=== PATIENT | male | born 1945 | race African-American/Black ===

== ENCOUNTER 2017-09-27 08:59 | Emergency (ER) | payer OTHER, MEDICARE ==
[2017-09-27] MEDS: KETOROLAC 60 MG/2 ML INJ. IM (10:11)
[2017-09-27] MEDS: HYDROcodone/APAP 5/325MG 1 TAB TABLET PO (10:11)
== END 2017-09-27 11:02 | disposition home or self-care (01) ==
LOC: ER 08:59
DX: G89.29 Other chronic pain (principal); M25.551 Pain in right hip; Z88.6 Allergy status to analgesic agent
CPT/HCPCS: 73502; 96372; 99284-25; J1885

== ENCOUNTER 2017-12-14 18:47 | Inpatient (IN) | payer OTHER, MEDICARE ==
[2017-12-14 19:26] LABS: BASO % 0 % (0-3); EOS % 0 % (0-3); HEMATOCRIT 33.7 % (39.0-53.0); LYMPH # 0.8 x10^3/uL (1.0-4.8); LYMPH % 7 % (24-48); MEAN CORPUSCULAR HEMOGLOBIN 29 pg (25-35); MEAN CORPUSCULAR HGB CONC 33 g/dL (31-37); MEAN CORPUSCULAR VOLUME 88 fL (79-100); MONO # 0.8 x10^3/uL (0.0-1.1); MONO % 7 % (0-9); NEUT # 11.1 x10^3uL (1.8-7.7); NEUT % 87 % (31-73); PLATELET COUNT 360 x10^3/uL (140-400); RED BLOOD COUNT 3.84 x10^6/uL (4.30-5.70); RED CELL DISTRIBUTION WIDTH 13.7 % (11.5-14.5); WHITE BLOOD COUNT 12.8 x10^3/uL (4.0-11.0)
[2017-12-14 19:36] LABS: ADD MAN DIFF? YES; ANION GAP 13 (6-14); BLOOD UREA NITROGEN 19 mg/dL (8-26); BUN/CREATININE RATIO 11 (6-20); CALCIUM 10.3 mg/dL (8.5-10.1); CARBON DIOXIDE 28 mmol/L (21-32); CHLORIDE 98 mmol/L (98-107); CREATININE 1.7 mg/dL (0.7-1.3); GFR 48.5; GLUCOSE 123 mg/dL (70-99); INR 1.4 (0.8-1.1); POTASSIUM 3.3 mmol/L (3.5-5.1); PROTHROMBIN TIME PATIENT 16.5 SEC (11.7-14.0); SODIUM 139 mmol/L (136-145)
[2017-12-14] MEDS: ONDANSETRON PF 4 MG/2 ML VIAL. IV ×2 (19:36→20:57)
[2017-12-14] MEDS: IV NORMAL SALINE 1000ML BAG 1,000 ML IV (19:36)
[2017-12-14] MEDS: fentaNYL PF VIAL 100 MCG/2 ML VIAL IV (19:36)
[2017-12-14 19:43] LABS: ALBUMIN 3.7 g/dL (3.4-5.0); ALBUMIN/GLOBULIN RATIO 0.8 (1.0-1.7); ALK PHOS 55 U/L (46-116); ALT (SGPT) 22 U/L (16-63); AST (SGOT) 38 U/L (15-37); TOTAL BILIRUBIN 0.5 mg/dL (0.2-1.0); TOTAL PROTEIN 8.2 g/dL (6.4-8.2)
[2017-12-14 19:49] LABS: LIPASE 5100 U/L (73-393)
[2017-12-14 20:03] LABS: % BANDS 4 % (0-9); % LYMPHS 1 % (24-48); % MONOS 2 % (0-10); % SEGS 93 % (35-66); PLT ESTIMATE ADEQUATE (ADEQUATE)
[2017-12-14] MEDS ORDERED: MORPHINE SULFATE 10 MG/ML VIAL. (20:49)
[2017-12-14] MEDS: MORPHINE SULFATE 10 MG/ML VIAL. IV (20:56)
[2017-12-14 21:03] LABS: TROPONINI < 0.017 ng/mL (0.000-0.055)
[2017-12-14] MEDS ORDERED: CALCIUM CARBONATE 500 MG TAB.CHEW PO (21:45)
[2017-12-14] MEDS ORDERED: MAG HYDROX/ALUMINUM HYD/SIMETH 30 ML ORAL.SUSP PO (21:45)
[2017-12-14] MEDS ORDERED: PROCHLORPERAZINE 25 MG SUPP.RECT. PR (21:45)
[2017-12-14] MEDS ORDERED: LABETALOL 20 MG/4 ML DISP.SYRIN. IVP (22:00)
[2017-12-14] MEDS ORDERED: TEMAZEPAM 7.5 MG CAPSULE PO (22:00)
[2017-12-14] MEDS: POTASSIUM CL 40MEQ IN 0.9%NACL 1,000 ML IV (23:08)
[2017-12-14] MEDS: MORPHINE SULFATE 4 MG/ML DISP.SYRIN. IV (23:31)
[2017-12-15] MEDS: MORPHINE SULFATE 4 MG/ML DISP.SYRIN. IV (02:57)
[2017-12-15] MEDS: ONDANSETRON PF 4 MG/2 ML VIAL. IV ×4 (02:57→22:58)
[2017-12-15] MEDS: PANTOPRAZOLE IV PUSH 40 MG VIAL. IVP (08:34)
[2017-12-15] MEDS: ACETAMINOPHEN 325 MG TABLET. PO ×2 (08:35→22:57)
[2017-12-15] MEDS: POTASSIUM CL 40MEQ IN 0.9%NACL 1,000 ML IV ×2 (10:28→20:37)
[2017-12-15] MEDS: oxyCODONE/APAP 5/325 1 TAB TABLET PO ×3 (12:03→20:34)
[2017-12-16] MEDS: oxyCODONE/APAP 5/325 1 TAB TABLET PO ×3 (05:00→20:02)
[2017-12-16] MEDS: POTASSIUM CL 40MEQ IN 0.9%NACL 1,000 ML IV (05:20)
[2017-12-16] MEDS: ONDANSETRON PF 4 MG/2 ML VIAL. IV ×2 (05:21→15:47)
[2017-12-16 08:36] LABS: ALBUMIN 2.3 g/dL (3.4-5.0); ALBUMIN/GLOBULIN RATIO 0.6 (1.0-1.7); ALK PHOS 48 U/L (46-116); ALT (SGPT) 15 U/L (16-63); ANION GAP 8 (6-14); AST (SGOT) 20 U/L (15-37); BLOOD UREA NITROGEN 12 mg/dL (8-26); BUN/CREATININE RATIO 11 (6-20); CALCIUM 9.1 mg/dL (8.5-10.1); CARBON DIOXIDE 25 mmol/L (21-32); CHLORIDE 107 mmol/L (98-107); CREATININE 1.1 mg/dL (0.7-1.3); GFR 80.1; GLUCOSE 84 mg/dL (70-99); LIPASE 391 U/L (73-393); POTASSIUM 4.1 mmol/L (3.5-5.1); SODIUM 140 mmol/L (136-145); TOTAL BILIRUBIN 0.3 mg/dL (0.2-1.0)
[2017-12-16] MEDS: PANTOPRAZOLE IV PUSH 40 MG VIAL. IVP (10:04)
[2017-12-16] MEDS: MORPHINE SULFATE 4 MG/ML DISP.SYRIN. IV (10:05)
[2017-12-16 11:19] LABS: ADD MAN DIFF? NO
[2017-12-16 11:31] LABS: % SAT IRON 2 % (15-34); IRON,SERUM 6 ug/dL (65-175)
[2017-12-16 11:39] LABS: BASO # 0.1 x10^3/uL (0.0-0.2); BASO % 1 % (0-3); EOS # 0.2 x10^3/uL (0.0-0.7); EOS % 2 % (0-3); HEMATOCRIT 24.4 % (39.0-53.0); HEMOGLOBIN 7.8 g/dL (13.0-17.5); LYMPH # 0.9 x10^3/uL (1.0-4.8); LYMPH % 8 % (24-48); MEAN CORPUSCULAR HEMOGLOBIN 29 pg (25-35); MEAN CORPUSCULAR HGB CONC 32 g/dL (31-37); MEAN CORPUSCULAR VOLUME 90 fL (79-100); MONO # 1.1 x10^3/uL (0.0-1.1); MONO % 10 % (0-9); NEUT # 8.8 x10^3uL (1.8-7.7); NEUT % 80 % (31-73); PLATELET COUNT 237 x10^3/uL (140-400); RED BLOOD COUNT 2.72 x10^6/uL (4.30-5.70); RED CELL DISTRIBUTION WIDTH 13.6 % (11.5-14.5); WHITE BLOOD COUNT 11.1 x10^3/uL (4.0-11.0)
[2017-12-16 11:51] LABS: VITAMIN-B12 424 pg/mL (247-911)
[2017-12-16] MEDS: FERROUS SULFATE ORAL 300 MG/5 ML SOLUTION. PO (17:57)
[2017-12-16] MEDS: PROCHLORPERAZINE 10 MG/2 ML VIAL. IV (20:37)
[2017-12-17] MEDS: oxyCODONE/APAP 5/325 1 TAB TABLET PO ×4 (03:02→23:53)
[2017-12-17] MEDS: ONDANSETRON PF 4 MG/2 ML VIAL. IV (03:02)
[2017-12-17] MEDS ORDERED: LIDOCAINE 1% PF 2 ML VIAL. ID ×2 (06:30→07:00)
[2017-12-17] MEDS ORDERED: MIDAZOLAM HCL/PF 2 MG/2 ML VIAL. IV (06:30)
[2017-12-17] MEDS ORDERED: fentaNYL PF VIAL 100 MCG/2 ML VIAL IV ×4 (06:30→07:00)
[2017-12-17 06:33] LABS: HEMATOCRIT 23.7 % (39.0-53.0); HEMOGLOBIN 7.8 g/dL (13.0-17.5); MEAN CORPUSCULAR HEMOGLOBIN 29 pg (25-35); MEAN CORPUSCULAR HGB CONC 33 g/dL (31-37); MEAN CORPUSCULAR VOLUME 89 fL (79-100); PLATELET COUNT 250 x10^3/uL (140-400); RED BLOOD COUNT 2.68 x10^6/uL (4.30-5.70); RED CELL DISTRIBUTION WIDTH 13.4 % (11.5-14.5); WHITE BLOOD COUNT 9.5 x10^3/uL (4.0-11.0)
[2017-12-17] MEDS: IV RINGERS,LACTATED 1000ML 1,000 ML IV ×2 (06:51→07:00)
[2017-12-17 06:52] LABS: ALBUMIN 2.1 g/dL (3.4-5.0); ALBUMIN/GLOBULIN RATIO 0.5 (1.0-1.7); ALK PHOS 60 U/L (46-116); ALT (SGPT) 16 U/L (16-63); ANION GAP 5 (6-14); AST (SGOT) 22 U/L (15-37); BLOOD UREA NITROGEN 7 mg/dL (8-26); BUN/CREATININE RATIO 7 (6-20); CALCIUM 9.2 mg/dL (8.5-10.1); CARBON DIOXIDE 27 mmol/L (21-32); CHLORIDE 106 mmol/L (98-107); GFR 89.4; GLUCOSE 114 mg/dL (70-99); POTASSIUM 3.9 mmol/L (3.5-5.1); SODIUM 138 mmol/L (136-145); TOTAL BILIRUBIN 0.2 mg/dL (0.2-1.0)
[2017-12-17] MEDS ORDERED: ONDANSETRON PF 4 MG/2 ML VIAL. IV (07:00)
[2017-12-17] MEDS ORDERED: PROCHLORPERAZINE 10 MG/2 ML VIAL. IV (07:00)
[2017-12-17] MEDS ORDERED: MORPHINE SULFATE 2 MG/ML DISP.SYRIN. IV (07:00)
[2017-12-17] MEDS ORDERED: PROPOFOL 20 ML IV (07:13)
[2017-12-17] MEDS ORDERED: LIDOCAINE 2% PF Vial for OR 5 ML VIAL. (07:13)
[2017-12-17] MEDS: FERROUS SULFATE ORAL 300 MG/5 ML SOLUTION. PO ×2 (09:11→17:13)
[2017-12-17] MEDS: PANTOPRAZOLE 40 MG TABLET.DR. PO ×2 (09:11→17:12)
[2017-12-17] MEDS: fentaNYL PF VIAL 100 MCG/2 ML VIAL IV (09:12)
[2017-12-17] MEDS: IRON SUCROSE COMPLEX 200 MG in IV NORMAL SALINE 100ML 100 ML IV (09:13)
[2017-12-17] MEDS: VITAMIN B12,B9,B6 COMPLEX 1 TABLET. PO (13:24)
[2017-12-17] MEDS: POTASSIUM CL 20MEQ D5-0.45NACL 1,000 ML IV (13:26)
[2017-12-18] MEDS: oxyCODONE/APAP 5/325 1 TAB TABLET PO ×4 (03:57→16:02)
[2017-12-18] MEDS: ONDANSETRON ODT 4 MG TAB.RAPDIS. PO (07:35)
[2017-12-18] MEDS: PANTOPRAZOLE 40 MG TABLET.DR. PO ×2 (07:36→16:01)
[2017-12-18] MEDS: FERROUS SULFATE ORAL 300 MG/5 ML SOLUTION. PO (08:00)
[2017-12-18] MEDS: VITAMIN B12,B9,B6 COMPLEX 1 TABLET. PO (09:01)
[2017-12-18] MEDS ORDERED: POLYETHYLENE GLYCOL 3350 17 GM PACKET. PO (10:00)
[2017-12-18] MEDS: MAGNESIUM HYDROXIDE 2,400 MG/30 ML ORAL.SUSP. PO (12:02)
== END 2017-12-18 16:08 | disposition home or self-care (01) | DRG 438 ==
LOC: ER 18:47 → 5 SOUTH 21:50
PROC: 0DB58ZX Excision of Esophagus, Via Natural or Artificial Opening Endoscopic, Diagnostic (ICD-10-PCS; principal; 2017-12-17 07:30)
PROC: 0DB68ZX Excision of Stomach, Via Natural or Artificial Opening Endoscopic, Diagnostic (ICD-10-PCS; 2017-12-17 07:30)
DX: K85.20 Alcohol induced acute pancreatitis without necrosis or infection (principal); N17.0 Acute kidney failure with tubular necrosis; R65.10 Systemic inflammatory response syndrome (SIRS) of non-infectious origin without acute organ dysfunction; J90 Pleural effusion, not elsewhere classified; K29.60 Other gastritis without bleeding; K25.9 Gastric ulcer, unspecified as acute or chronic, without hemorrhage or perforation; K21.0 Gastro-esophageal reflux disease with esophagitis; I10 Essential (primary) hypertension; M19.90 Unspecified osteoarthritis, unspecified site; F43.10 Post-traumatic stress disorder, unspecified; E87.6 Hypokalemia; N28.1 Cyst of kidney, acquired; N20.0 Calculus of kidney; K44.9 Diaphragmatic hernia without obstruction or gangrene; D50.9 Iron deficiency anemia, unspecified; E78.5 Hyperlipidemia, unspecified; F31.9 Bipolar disorder, unspecified; Z95.0 Presence of cardiac pacemaker; Z82.49 Family history of ischemic heart disease and other diseases of the circulatory system; Z79.899 Other long term (current) drug therapy; Z72.89 Other problems related to lifestyle
CPT/HCPCS: 36415; 74176; 76705; 80053; 82607; 83540; 83550; 83690; 84484; 85007; 85025; 85027; 85610; 88305; 88342; 93005; 96361; 96374; 96375; 96376; 97110-GP; 97161-GP; 97165-GO; 99285; 99285-25; C9113; J0780; J1756; J2001; J2270; J2405; J2704; J3010; J3480; J7030; J7120; Q0162

== ENCOUNTER → 2019-05-18 | Outpatient (CLI) | payer OTHER ==
[2017-12-18 15:00] VITALS: BP 152/69
[~2019-05-18] MED LIST: AMLO10TA8 PO; ASPI-621 PO; CARV25TA2 PO; CYAN1TAB19 PO; DICL100G18 TP; FERR325T14 PO; HYDR50TA6 PO; MOME17SP NS; NAPR-695 PO; OMEP20TA8 PO; OXYC1TAB7 PO; POLY17PO28 PO; POTA20TA4 PO; Pantoprazole PO; SERT50TA PO; TRAM50TA PO; VENTOLIN HFA18 GM INH; VITA1TAB19 PO
[2019-05-18 09:24] LABS: BASO # 0.1 x10^3/uL (0.0-0.2); BASO % 2 % (0-3); EOS # 0.2 x10^3/uL (0.0-0.7); EOS % 6 % (0-3); HEMATOCRIT 41.6 % (39.0-53.0); HEMOGLOBIN 13.7 g/dL (13.0-17.5); LYMPH # 1.7 x10^3/uL (1.0-4.8); LYMPH % 40 % (24-48); MEAN CORPUSCULAR HEMOGLOBIN 29 pg (25-35); MEAN CORPUSCULAR HGB CONC 33 g/dL (31-37); MEAN CORPUSCULAR VOLUME 89 fL (79-100); MONO # 0.3 x10^3/uL (0.0-1.1); MONO % 7 % (0-9); NEUT # 1.9 x10^3/uL (1.8-7.7); NEUT % 45 % (31-73); PLATELET COUNT 255 x10^3/uL (140-400); RED BLOOD COUNT 4.67 x10^6/uL (4.30-5.70); RED CELL DISTRIBUTION WIDTH 13.8 % (11.5-14.5); WHITE BLOOD COUNT 4.2 x10^3/uL (4.0-11.0)
[2019-05-18 09:29] LABS: PROTHROMBIN TIME PATIENT 13.9 SEC (11.7-14.0)
[2019-05-18 09:42] LABS: ALBUMIN 3.6 g/dL (3.4-5.0); CALCIUM 10.4 mg/dL (8.5-10.1); CREATININE 1.1 mg/dL (0.7-1.3); GFR 79.8; POTASSIUM 3.6 mmol/L (3.5-5.1)
[2019-05-18 12:02] LABS: BILIRUBIN,URINE NEGATIVE (NEG); CLARITY,URINE CLOUDY; COLOR,URINE YELLOW; NITRITE,URINE NEGATIVE (NEG); PROTEIN,URINE NEGATIVE (NEG-TRACE); UROBILINOGEN,URINE 0.2 mg/dL (0.2 mg/dL)
[2019-05-18 12:07] LABS: BACTERIA,URINE FEW /HPF (0-FEW); HYALINE CASTS, URINE MANY /HPF; RBC,URINE 0 /HPF (0-2); SQUAMOUS EPITHELIAL CELL,UR FEW /LPF; WBC,URINE RARE /HPF (0-4)
--- NOTE | 2019-05-18 13:40 | EKG ---
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
--- NOTE | 2019-05-18 14:10 | RAD ---
EXAM: Chest, 2 views. HISTORY: Hypertension. COMPARISON: None. FINDINGS: 2 views of the chest are obtained. There is no infiltrate, pleural effusion or pneumothorax. The heart is normal in size. There is a cardiac pacemaker with leads in expected position. IMPRESSION: No acute pulmonary finding. Electronically signed by: Priscilla Woodruff MD (05/18/2019 2:07 PM) [facility]
[2019-05-19 00:07] LABS: HEMOGLOBIN A1C 5.7 % (4.8-5.6)
== END | disposition home or self-care (01) ==
LOC: SURGPAT 13:12
PROVIDERS: ATTEND Orthopaedic Surgery
DX: Z01.818 Encounter for other preprocedural examination (principal); M16.12 Unilateral primary osteoarthritis, left hip; Z95.0 Presence of cardiac pacemaker
CPT/HCPCS: 36415; 71046; 80048; 81001; 82040; 82306; 83036; 85025; 85610; 85651; 85730; 87641; 93005

== ENCOUNTER 2019-06-02 12:02 | Inpatient (IN) | payer OTHER ==
[~2019-06-02] VITALS: Ht 177.8 cm; Wt 87.5 kg
[~2019-06-02 12:02] MED LIST changes: +TRANEXAMIC ACID 1,000 MG in IV NORMAL SALINE 50ML 50 ML INJ ONE
[2019-06-02] MEDS ORDERED: MELOXICAM 7.5 MG TABLET PO ONE (12:45)
[2019-06-02] MEDS ORDERED: GABAPENTIN 300 MG CAPSULE. PO ONE (12:45)
[2019-06-02] MEDS ORDERED: ACETAMINOPHEN 500 MG TABLET PO ONE ×2 (12:53→13:00)
[2019-06-02] MEDS: IV RINGERS,LACTATED 1000ML 1,000 ML IV SCH ×2 (13:04→23:51)
[2019-06-02 13:08] LABS: PROTHROMBIN TIME PATIENT 16.3 SEC (11.7-14.0)
[2019-06-02] MEDS ORDERED: ONDANSETRON PF 4 MG/2 ML VIAL. ONE (14:12)
[2019-06-02] MEDS ORDERED: DEXAMETHASONE SOD PHOS 4 MG/ML VIAL ONE (14:12)
[2019-06-02] MEDS ORDERED: LIDOCAINE 2% PF 5 ML VIAL. ONE (14:12)
[2019-06-02] MEDS ORDERED: fentaNYL PF VIAL 100 MCG/2 ML VIAL ONE (14:12)
[2019-06-02] MEDS ORDERED: ROCURONIUM 50 MG/5 ML VIAL. ONE (14:12)
[2019-06-02] MEDS ORDERED: PROPOFOL 20 ML IV ONE (14:12)
[2019-06-02] MEDS ORDERED: PROCHLORPERAZINE 10 MG/2 ML VIAL. IV PRN (15:00)
[2019-06-02] MEDS ORDERED: ONDANSETRON PF 4 MG/2 ML VIAL. IV PRN (15:00)
[2019-06-02] MEDS ORDERED: fentaNYL PF VIAL 100 MCG/2 ML VIAL IV PRN ×2 (15:00→17:45)
[2019-06-02] MEDS ORDERED: IV RINGERS,LACTATED 1000ML 1,000 ML IV SCH (15:00)
[2019-06-02] MEDS ORDERED: MORPHINE SULFATE 2 MG/ML VIAL. IV PRN ×2 (15:00→17:45)
[2019-06-02] MEDS ORDERED: LIDOCAINE 1% PF 2 ML VIAL. ID PRN (15:00)
[2019-06-02] MEDS ORDERED: DESFLURANE 61 TO 120 MINUTES IH ONE (15:48)
[2019-06-02] MEDS ORDERED: VASOPRESSIN 20 UNIT/ML VIAL. ONE (16:45)
[2019-06-02] MEDS ORDERED: NEOSTIGMINE METHYLSULFATE 5 MG/5 ML SYRINGE. ONE (17:12)
[2019-06-02] MEDS ORDERED: GLYCOPYRROLATE 1 MG/5 ML VIAL. ONE (17:12)
[2019-06-02] MEDS: fentaNYL PF VIAL 100 MCG/2 ML VIAL IV PRN ×2 (17:43→17:48)
--- NOTE | 2019-06-02 17:44 | PDOC4 ---
Operative Note Operative Note Date of surgery: 06/02/2019 Preoperative diagnosis: Degenerative joint disease left hip Postoperative diagnosis: Same Operative procedure: Leftt total hip arthroplasty Surgeon: Gena Assist: Julio C Hong nurse practitioner Anesthesia: Gen. Estimated blood loss: 100 mL Complications: None Specimens: Femoral head to pathology Operative indications: Please see my preoperative clinic note and dictated history and physical for detailed operative indications and note that preoperatively we did cover the possibility of infection nerve or blood vessel damage leg length inequality instability premature wear or loosening medical or other anesthetic complications among others he wishes to proceed with surgical evaluation and treatment with joint center admission to follow. Operative text: Patient was identified procedure verified patient placed in the supine position on the operating table. After adequate amounts of general anesthesia were administered he was placed decubitus left side up using the Stulberg hip positioner and the left hip was prepped and draped in standard sterile fashion. After timeout was performed patient procedure identified and verified a curvilinear incision was made centered over the greater trochanter iliotibial band and gluteal fascia were divided in line with their fibers Charnley retractor was placed external rotators were divided from their insertion hip capsule was split in a T fashion hip was dislocated femoral neck c ut was made with the reference cutting guide and the femoral head was noted to be degenerative measured at a size 47 mm and sent for pathological evaluation. The acetabulum was exposed contents of the fovea and labrum were excised and reaming carried up to a size 57 with excellent bleeding bone obtained throughout and the cup sufficiently medialized to the medial wall and a size 58 [employer] coated cluster hole hemispherical cup was impacted in place in proper version a single superiorly directed screw 35 mm in length provided excellent fixation and a 40 mm standard liner was impacted engaging the locking mechanism. The femur was then prepared with a box osteotome and reamed and broached up to a size 14. Trial fitting revealed some instability with a standard offset component and leg lengths were equalized with a high offset component and a +8 40 mm head which provided excellent stability equalized leg lengths and reproduced offset. Trial components removed thorough irrigation carried out normal saline solution using pulse lavage and a size 14 high offset synergy porous coated femoral component was impacted into place and a +8 40 mm Oxinium femoral head was impacted into place and was reduced with equivalent stability showing stability to about 55 internal rotation at 90 hip flexion. Hip capsule was repaired with #5 Ethibond external rotators were reattached transosseously with #5 Ethibond. Hemovac drain and pain catheter were placed pain catheter mixture was injected throughout the joint capsule and fascia was then closed with interrupted #5 Ethibond suture and reinforced with a #1 PDS strata fix barbed suture. Subcutaneous closure with buried Vicryl suture skin closure with 3-0 strata fix Monocryl. A jey dressing with Acticoat was placed and patient wa s returned to recovery room in stable condition having tolerated procedure well. Julio C Hong nurse practitioner was present for the procedure and assisted in the patient positioning prepping draping retraction and skin closure GO AYOUB MD Jun 02, 2019 17:44
[2019-06-02] MEDS ORDERED: CALCIUM CARBONATE 500 MG TAB.CHEW PO PRN (17:45)
[2019-06-02] MEDS ORDERED: DEXTROSE 50% 25 GM / 50ML DISP.SYRIN. IV PRN (17:45)
[2019-06-02] MEDS ORDERED: PROCHLORPERAZINE 5 MG TABLET. PO PRN (17:45)
[2019-06-02] MEDS ORDERED: IV DEXTROSE 5% 250 ML BAG. IV PRN (17:45)
[2019-06-02] MEDS ORDERED: 0.9 % SODIUM CHLORIDE 10 ML DISP.SYRIN. IV PRN (17:45)
[2019-06-02] MEDS ORDERED: IV NORMAL SALINE 1000ML BAG 1,000 ML IV SCH (17:45)
[2019-06-02] MEDS ORDERED: diphenhydrAMINE 50 MG/ML VIAL IV PRN (17:45)
[2019-06-02] MEDS ORDERED: ZOLPIDEM 5 MG TABLET. PO PRN (17:45)
[2019-06-02] MEDS: HYDROmorphone 2 MG/ML VIAL IV PRN ×4 (17:58→18:22)
[2019-06-02] MEDS ORDERED: IPRATRPIUM/ALBUTEROL 0.5/2.5MG 3 ML NEBU. NEB ONE (18:00)
[2019-06-02 19:05] VITALS: BP 140/79
[2019-06-02 19:35] VITALS: BP 135/79
[2019-06-02 20:05] VITALS: BP 131/66
[2019-06-02] MEDS: ONDANSETRON ODT 4 MG TAB.RAPDIS. PO SCH ×2 (20:12→23:51)
[2019-06-02] MEDS: ONDANSETRON PF 4 MG/2 ML VIAL. IV SCH ×2 (20:12→23:51)
[2019-06-02 20:35] VITALS: BP 138/79
[2019-06-02] MEDS ORDERED: NON FORMULARY ITEM (Albuterol Sulfate (Ventolin Hfa Inhaler) 2 PUFF) INH SCH (21:00)
--- NOTE | 2019-06-02 21:25 | HP ---
ADMIT DATE: 06/02/2019 CHIEF COMPLAINT: Degenerative left hip and pain. HISTORY OF PRESENT ILLNESS: The patient is a 73-year-old male, very active with exercise in ongoing martial arts program, but increasingly very limited by his left hip stiffness and groin pain, very sharp on startup of activities. He has to stop and reorient the leg, so he can take the next few steps and has to watch it that he does not aggravate that hip and groin area with any attempted even very limited range of motion way less than he would normally do with his martial arts. He has used a cane in his left hand, so far, but really is tolerating this less and less well with ongoing activities and has really had poor results from previous injection in his joint. PAST MEDICAL HISTORY: Hypertension. PAST SURGICAL HISTORY: Pacemaker placement and Achilles tendon repair in the . FAMILY HISTORY: Mom had heart disease. SOCIAL HISTORY: Denies smoking. Occasional social alcohol use, denies drug use. MEDICATIONS: Include tramadol and a blood pressure medication. ALLERGIES: INCLUDE LISINOPRIL AND IBUPROFEN. REVIEW OF SYSTEMS: Denies any recent illness, no fever, chills, chest pain, or shortness of breath. Significant for the ongoing left hip and groin area pain with activity. PHYSICAL EXAMINATION: VITAL SIGNS: Per admission sheet. HEENT: Atraumatic, normocephalic. HEART: Regular rate and rhythm. LUNGS: Clear to auscultation bilaterally. ABDOMEN: Benign. EXTREMITIES: Examination of lower extremities reveals decreased range of motion with severe tenderness over his already limited range of motion on the left hip compared to the right. No trochanteric bursal tenderness. No instability. Negative straight leg raise sign. Normal examination of the contralateral right hip, bilateral knees and ankles with intact distal pulses, sensation, reflexes, skin in both lower extremities throughout. IMAGING: X-rays show [id number] degenerative change in the left hip. ASSESSMENT: Left hip pain and primary osteoarthritis, left hip. TREATMENT PLAN: I had previously gone over with him in clinic, his failure of ongoing nonoperative treatment options and the rationale for total hip arthroplasty, the possibility of nerve or blood vessel damage, instability, leg length inequality, infection, premature wear or loosening, medical or other anesthetic complications among others. I reviewed all this and answered his questions this morning preoperatively as well and he wishes to proceed with surgical evaluation and treatment, which will include Joint Center admission to follow. GO AYOUB MD DR: AMEE/logan JOB#: [id number] / [id number]
[2019-06-02 21:35] VITALS: BP 132/82
[2019-06-02 22:35] VITALS: BP 154/81
[2019-06-02] MEDS: oxyCODONE IR 5 MG TABLET PO PRN (22:44)
[2019-06-03 02:33] VITALS: BP 144/80
[2019-06-03] MEDS: oxyCODONE IR 5 MG TABLET PO PRN ×5 (04:31→21:38)
[2019-06-03 05:15] LABS: HEMATOCRIT 42.2 % (39.0-53.0); HEMOGLOBIN 13.8 g/dL (13.0-17.5)
[2019-06-03 05:23] LABS: PROTHROMBIN TIME PATIENT 21.4 SEC (11.7-14.0)
[2019-06-03] MEDS ORDERED: MAGNESIUM HYDROXIDE 2,400 MG/30 ML ORAL.SUSP. PO PRN (06:00)
[2019-06-03] MEDS: PANTOPRAZOLE 40 MG TABLET.DR. PO SCH (06:05)
[2019-06-03] MEDS: traMADol 50 MG TABLET PO SCH ×3 (06:05→18:14)
[2019-06-03] MEDS: ONDANSETRON ODT 4 MG TAB.RAPDIS. PO SCH ×2 (06:05→12:00)
[2019-06-03] MEDS: ONDANSETRON PF 4 MG/2 ML VIAL. IV SCH ×2 (06:05→12:00)
[2019-06-03] MEDS: GABAPENTIN 100 MG CAPSULE. PO SCH ×2 (06:06→18:00)
[2019-06-03 06:10] VITALS: BP 141/77
[2019-06-03] MEDS: ALBUTEROL SULFATE 2.5 MG/3 ML NEBU. NEB SCH ×4 (07:16→20:48)
[2019-06-03] MEDS: POTASSIUM CHLORIDE 20 MEQ TABLET.ER. PO SCH (08:12)
[2019-06-03] MEDS: MULTIVITAMIN with MINERAL TABLET. PO SCH (08:12)
[2019-06-03] MEDS: FERROUS SULFATE 325 MG TABLET. PO SCH ×2 (08:13→17:04)
[2019-06-03] MEDS: SERTRALINE 50 MG TABLET. PO SCH (08:13)
[2019-06-03] MEDS: ACETAMINOPHEN 500 MG TABLET PO SCH ×3 (08:13→21:39)
[2019-06-03] MEDS: hydroCHLOROthiazide 25 MG TABLET PO SCH (08:14)
[2019-06-03] MEDS: SENNOSIDES/DOCUSATE 8.6/50MG TABLET. PO SCH (08:14)
[2019-06-03] MEDS: CARVEDILOL 12.5 MG TABLET. PO SCH ×2 (08:17→17:11)
[2019-06-03] MEDS: FLUTICASONE 50MCG/NASAL SPRAY 16GM BOTTLE. NS SCH (08:21)
--- NOTE | 2019-06-03 08:51 | RAD ---
HIP LEFT 2V WITH PELVIS History: Postop left total hip arthroplasty. There has been a left total hip arthroplasty. Alignment appears grossly anatomic. No evidence of acute fracture. Soft tissue and intra-articular air is noted. Surgical drain identified. Mild degenerative changes at the right hip. IMPRESSION: Total left hip arthroplasty. Electronically signed by: Elie Lerma MD (06/03/2019 8:48 AM) [facility]
[2019-06-03] MEDS ORDERED: FERROUS SULFATE 325 MG TABLET. PO SCH (09:00)
[2019-06-03] MEDS ORDERED: chlordiazePOXIDE HCL 25 MG CAPSULE PO PRN (10:00)
[2019-06-03] MEDS ORDERED: LORazepam 1 MG TABLET PO SCH (10:00)
[2019-06-03] MEDS: THIAMINE 100 MG TABLET. PO SCH (11:34)
[2019-06-03] MEDS: FOLIC ACID 1 MG TABLET. PO SCH (11:34)
[2019-06-03] MEDS ORDERED: ONDANSETRON ODT 4 MG TAB.RAPDIS. PO PRN (12:00)
[2019-06-03] MEDS ORDERED: ONDANSETRON PF 4 MG/2 ML VIAL. IV PRN (12:00)
[2019-06-03] MEDS ORDERED: WARFARIN 7.5 MG TABLET. PO ONE (13:00)
--- NOTE | 2019-06-03 13:24 | PDOC ---
PROGRESS NOTES Subjective Subjective Pain controlled. No complaints. Objective Vital Signs Vital Signs Date Time Temp Pulse Resp B/P (MAP) Pulse Ox O2 Delivery O2 Flow Rate FiO2 06/03/19 13:00 Room Air 06/03/19 08:17 99 128/68 06/03/19 07:22 99 06/03/19 07:05 18 06/03/19 06:10 98.7 98.7 06/02/19 22:44 97.0 Physical Exam Dressing intact and dry. Hemovac in place. No apparent pain cathter. Thigh and calf soft. Good active range of motion of foot including dorsiflexion and plantar flexion. Cap refill at toes intact. No signs of compartment syndrome, DVT or neurovascular injury. Labs Laboratory Tests Test 06/02/19 12:40 06/03/19 04:21 Prothrombin Time 16.3 SEC (11.7-14.0) 21.4 SEC (11.7-14.0) Prothromb Time International Ratio 1.3 (0.8-1.1) 1.9 (0.8-1.1) Activated Partial Thromboplast Time 32 SEC (24-38) Hemoglobin 13.8 g/dL (13.0-17.5) Hematocrit 42.2 % (39.0-53.0) Mean Corpuscular Hemoglobin Concent 33 g/dL (31-37) Laboratory Tests Test 06/03/19 04:21 Hemoglobin 13.8 g/dL (13.0-17.5) Hematocrit 42.2 % (39.0-53.0) Mean Corpuscular Hemoglobin Concent 33 g/dL (31-37) Prothrombin Time 21.4 SEC (11.7-14.0) Prothromb Time International Ratio 1.9 (0.8-1.1) Assessment Assessment POD 1 MATT Plan Plan of Care Continue POC NITIN ELY MD Jun 03, 2019 13:24
[2019-06-03] MEDS ORDERED: BISACODYL 10 MG SUPP.RECT. PR PRN (16:00)
[2019-06-03] MEDS ORDERED: WARFARIN 3 MG TABLET. PO ONE (16:00)
--- NOTE | 2019-06-03 17:00 | NUR ---
Hemovac & IAC discontinued per order, tolerated procedure well, Tamika dressing changed previous dressing saturated with bloody drainage, incisional line intact, minimal edema noted, spouse at bedside, call light within reach, in bed visiting with spouse
[2019-06-03 17:12] VITALS: BP 132/75
[2019-06-03 18:33] VITALS: BP 110/68
--- NOTE | 2019-06-03 19:02 | NUR ---
started on ciwa for history of drinking 3 pints of rum. denies need for drink. no tremors noted.
[2019-06-04] MEDS: traMADol 50 MG TABLET PO SCH ×4 (00:10→17:30)
[2019-06-04] MEDS: ACETAMINOPHEN 500 MG TABLET PO SCH ×4 (03:00→21:07)
[2019-06-04 05:15] LABS: HEMATOCRIT 36.2 % (39.0-53.0); HEMOGLOBIN 11.9 g/dL (13.0-17.5)
[2019-06-04 05:22] LABS: PROTHROMBIN TIME PATIENT 26.6 SEC (11.7-14.0)
[2019-06-04] MEDS: GABAPENTIN 100 MG CAPSULE. PO SCH (06:00)
[2019-06-04 06:03] VITALS: BP 118/56
[2019-06-04] MEDS: PANTOPRAZOLE 40 MG TABLET.DR. PO SCH (06:03)
--- NOTE | 2019-06-04 06:40 | PDOC ---
PROGRESS NOTES Subjective Subjective Problems overnight:Hip is sore, getting around well, oxycodone works much better than tramadol Objective Vital Signs Vital Signs Date Time Temp Pulse Resp B/P (MAP) Pulse Ox O2 Delivery O2 Flow Rate FiO2 06/04/19 06:03 99.0 71 18 118/56 (76) 96 Room Air 99.0 06/02/19 22:44 97.0 Physical Exam leg lengths equal, distal neurovascular intact Labs Laboratory Tests Test 06/02/19 12:40 06/03/19 04:21 06/04/19 04:50 Prothrombin Time 16.3 SEC (11.7-14.0) 21.4 SEC (11.7-14.0) 26.6 SEC (11.7-14.0) Prothromb Time International Ratio 1.3 (0.8-1.1) 1.9 (0.8-1.1) 2.5 (0.8-1.1) Activated Partial Thromboplast Time 32 SEC (24-38) Hemoglobin 13.8 g/dL (13.0-17.5) 11.9 g/dL (13.0-17.5) Hematocrit 42.2 % (39.0-53.0) 36.2 % (39.0-53.0) Mean Corpuscular Hemoglobin Concent 33 g/dL (31-37) 33 g/dL (31-37) Laboratory Tests Test 06/04/19 04:50 Hemoglobin 11.9 g/dL (13.0-17.5) Hematocrit 36.2 % (39.0-53.0) Mean Corpuscular Hemoglobin Concent 33 g/dL (31-37) Prothrombin Time 26.6 SEC (11.7-14.0) Prothromb Time International Ratio 2.5 (0.8-1.1) Assessment Assessment POD# 2 total hip Plan Plan of Care WBAT, hip precautions, coumadin GO AYOUB MD Jun 04, 2019 06:40
[2019-06-04] MEDS: ALBUTEROL SULFATE 2.5 MG/3 ML NEBU. NEB SCH ×4 (07:23→20:01)
[2019-06-04] MEDS: SERTRALINE 50 MG TABLET. PO SCH (08:03)
[2019-06-04] MEDS: hydroCHLOROthiazide 25 MG TABLET PO SCH (08:03)
[2019-06-04] MEDS: THIAMINE 100 MG TABLET. PO SCH (08:03)
[2019-06-04] MEDS: SENNOSIDES/DOCUSATE 8.6/50MG TABLET. PO SCH (08:03)
[2019-06-04] MEDS: FOLIC ACID 1 MG TABLET. PO SCH (08:03)
[2019-06-04] MEDS: CARVEDILOL 12.5 MG TABLET. PO SCH ×2 (08:04→16:20)
[2019-06-04] MEDS: FERROUS SULFATE 325 MG TABLET. PO SCH ×2 (08:04→16:20)
[2019-06-04] MEDS: oxyCODONE IR 5 MG TABLET PO PRN ×3 (08:04→21:07)
[2019-06-04] MEDS: POTASSIUM CHLORIDE 20 MEQ TABLET.ER. PO SCH (08:04)
[2019-06-04] MEDS: MULTIVITAMIN with MINERAL TABLET. PO SCH (08:04)
[2019-06-04 08:08] VITALS: BP 134/86
[2019-06-04] MEDS: FLUTICASONE 50MCG/NASAL SPRAY 16GM BOTTLE. NS SCH (12:00)
--- NOTE | 2019-06-04 13:31 | NUR ---
Pharmacy Warfarin Dosing Note S:Pharmacy consulted to assist with anticoagulation therapy started 06/03/19 with target INR: 1.6 - 2.5 O:YAQUELIN MARTINEZ is a 73 year old M with MATT LABS: Last INR: 2.5 Last HGB: 11.9 Last HCT: 36.2 Last PLT: 255 Last dose of 3 mg given on 06/03/19 at Previous Regimen: Vitamin K given: Drug Interaction Changes: Ongoing Drug Interactions: A:INR of 2.5 is within desired range. Target range for this patient is: 1.6 - 2.5 P: Warfarin dose: Hold Today at 1600 Bridge Therapy: Next INR due TOMORROW. Pharmacy anticoagulation service will continue to follow. MAE LAW [facility], 06/04/19 [id number]
--- NOTE | 2019-06-04 14:41 | NUR ---
Transferred to self into bed, advised to call for assistance to prevent falls or injury to hip, spouse at the bedside at this time also informed her staff help only until made independent by therapy. call light in reach, ice to hip
[2019-06-04 16:18] VITALS: BP 128/67
[2019-06-04 18:35] VITALS: BP 130/67
[2019-06-05] MEDS: traMADol 50 MG TABLET PO SCH ×3 (00:33→13:08)
[2019-06-05] MEDS: ACETAMINOPHEN 500 MG TABLET PO SCH ×2 (03:56→10:04)
[2019-06-05] MEDS: oxyCODONE IR 5 MG TABLET PO PRN ×2 (03:56→11:52)
[2019-06-05 05:54] LABS: HEMATOCRIT 33.2 % (39.0-53.0); HEMOGLOBIN 10.9 g/dL (13.0-17.5)
[2019-06-05 06:07] LABS: PROTHROMBIN TIME PATIENT 22.6 SEC (11.7-14.0)
[2019-06-05 06:09] VITALS: BP 133/78
[2019-06-05] MEDS: PANTOPRAZOLE 40 MG TABLET.DR. PO SCH (06:17)
[2019-06-05] MEDS: MULTIVITAMIN with MINERAL TABLET. PO SCH (07:57)
[2019-06-05] MEDS: POTASSIUM CHLORIDE 20 MEQ TABLET.ER. PO SCH (07:57)
[2019-06-05] MEDS: THIAMINE 100 MG TABLET. PO SCH (07:57)
[2019-06-05] MEDS: FOLIC ACID 1 MG TABLET. PO SCH (07:58)
[2019-06-05] MEDS: SENNOSIDES/DOCUSATE 8.6/50MG TABLET. PO SCH (07:58)
[2019-06-05] MEDS: SERTRALINE 50 MG TABLET. PO SCH (07:58)
[2019-06-05] MEDS: FERROUS SULFATE 325 MG TABLET. PO SCH (07:59)
[2019-06-05] MEDS: hydroCHLOROthiazide 25 MG TABLET PO SCH (08:00)
[2019-06-05] MEDS: ALBUTEROL SULFATE 2.5 MG/3 ML NEBU. NEB SCH ×2 (08:00→12:50)
[2019-06-05] MEDS: CARVEDILOL 12.5 MG TABLET. PO SCH (08:01)
[2019-06-05] MEDS: FLUTICASONE 50MCG/NASAL SPRAY 16GM BOTTLE. NS SCH (08:02)
--- NOTE | 2019-06-05 11:09 | NUR ---
Pharmacy Warfarin Dosing Note S: Pharmacy consulted to assist with anticoagulation therapy started 06/03/19 O: YAQUELIN MARTINEZ is a 73 year old M with MATT LABS: Last INR: 2 Last HGB: 10.9 Last HCT: 33.2 Last PLT: 255 Last dose held (06/04/19) A:INR of 2 is within desired range. Target range for this patient is: 1.6 - 2.5 P: Warfarin dose: 2 mg Prior to Discharge and daily Next INR due Thursday 06/08 to be drawn at outpatient lab Pharmacy anticoagulation service will continue to follow. Kiley Huston RPH, 06/05/19 [id number]
[2019-06-05] MEDS ORDERED: OXYC5CAP PO (11:56)
--- NOTE | 2019-06-05 11:58 | SNU/HH DC ---
DISCHARGE WITH HOME HEALTH DISCHARGE INFORMATION: Condition on Discharge: Stable CODE STATUS: Code Status: Full HOME HEALTH: Face to Face: I certify this patient is under my care and that I, or a nurse practitioner or physician's child life assistant working with me, had a face to face encounter that meets the physician face to face encounter requirements with this patient on [06/05/19]. Medical Complications: S/P Joint Replacement RN For Eval/Treatment: Yes Physical Therapy For: Evalulation/Treatment Pt Meets Homebound Status: Limited distance walking POST DISCHARGE ORDERS: Activity Instructions for Disc: Activity as tolerated, Progressive ambulation (standard total hip precautions on left) Weight Bearing Status after Di: Full weight bearing Bathing Instructions: Shower-keep dressing dry, No Tub Bath until see Wound/Incision Care: Ice to area for comfort, Keep wound elevated, Do not change dressing FOLLOW-UP: Follow Up With: Dr. Avery in 10-14 days [phone] Warfarin Follow UP: [facility] pharmacy will monitor dosage [phone] TREATMENT/EQUIPMENT ORDERS: Adaptive Equipment Issued: Walker CERTIFICATION STATEMENT: Certification Statement: Certification Statement: Based on the above finding, I certify that this patient is confined to the home and needs intermittent assisted care, physical therapy and/or speech therapy, or continues to need occupational therapy.~ This patient is under my care, and I have initiated the establishment of the plan of care.~ This patient will be followed by myself or a community physician who will periodically review the plan of care. Home Meds Active Scripts Ferrous Sulfate (FERROUS SULFATE) 325 Mg Tablet, 1 TAB PO DAILY, #30 TAB Prov:PAMELA MANCILLA MD 12/18/17 [Pantoprazole] 40 MG TABLET.DR Starks Conflict Check, 40 MG PO BIDAC, #60 Prov:PAMELA MANCILLA MD 12/18/17 Reported Medications Mometasone Furoate (NASONEX) 17 Gm [place].pump, 2 SPRAYS NS BID for ALLERGY CONTROL, INHALER 05/25/19 Diclofenac Sodium (VOLTAREN) 100 Gm Gel..gram., 100 GM TP PRN DAILY PRN for PAIN, EACH 05/21/19 Potassium Chloride (POTASSIUM CHLORIDE ) 20 Meq Tablet.er, 20 MEQ PO DAILY for SUPPLEMENT, TAB.SR 05/21/19 Sertraline Hcl (ZOLOFT) 50 Mg Tablet, 25 MG PO DAILY for ANTI-DEPRESSANT, TAB 0 Refills 05/21/19 Vitamin B Complex (B COMPLEX) 1 Each Tablet, 1 EACH PO DAILY for SUPPLEMENT, TAB 05/21/19 Carvedilol (CARVEDILOL) 25 Mg Tablet, 12.5 MG PO BIDWMEALS for CARDIAC, TAB 05/21/19 Aspirin/Acetaminophen/Caffeine (EXCEDRIN EXTRA STRENGTH CAPLET) 1 Each Tablet, 1.5 TAB PO DAILY for HEADACHES, TAB 05/21/19 Tramadol Hcl (TRAMADOL HCL) 50 Mg Tablet, 50 MG PO PRN Q4HRS PRN for PAIN, TAB 05/21/19 Hydrochlorothiazide (HYDROCHLOROTHIAZIDE TABLET) 50 Mg Tablet, 25 MG PO DAILY for DIURETIC, TAB 0 Refills 05/21/19 Albuterol Sulfate (VENTOLIN HFA INHALER) 18 Gm Hfa.aer.ad, 2 PUFF INH QID for FOR ASTHMA, INHALER 0 Refills 05/21/19 Amlodipine Besylate (AMLODIPINE BESYLATE) 10 Mg Tablet, 10 MG PO DAILY, TAB 12/15/17 GO AVERY MD Jun 05, 2019 11:58
--- NOTE | 2019-06-05 12:53 | DS ---
DATE OF DISCHARGE: 06/05/2019 ORTHOPEDIC DISCHARGE SUMMARY DIAGNOSIS: Degenerative joint disease of left hip. PROCEDURE: Left total hip arthroplasty. DISPOSITION: Home with home health. ACTIVITY: Weightbearing as tolerated, standard total hip precautions. Maintain CHAZ dressing, call if any saturation, fever, chills, uncontrolled pain or other problems. DISCHARGE MEDICATIONS: New prescription include oxycodone 5 mg p.o. q.4 hours p.r.n. pain, Coumadin as directed by anticoagulation clinic, resume preoperative medications. BRIEF DESCRIPTION OF HOSPITAL COURSE: The patient underwent an uncomplicated left total hip arthroplasty. Overall progressed well through physical therapy in terms of ambulation and transfers, still some soreness expected in the hip, but remained medically stable throughout his stay and is discharged home with home health followup in stable condition. GO AYOUB MD DR: AMEE/logan JOB#: [id number] / [id number]
[2019-06-05] MEDS ORDERED: WARFARIN 2 MG TABLET. PO ONE (14:00)
[2019-06-05 14:46] VITALS: BP 140/75
--- NOTE | 2019-06-05 15:10 | NUR ---
Discharge instructions given with prescription. Answered questions and concerns. Pt discharge accompanied by spouse.
--- NOTE | 2019-06-09 17:06 | PATHOLOGY ---
[facility] Accession Number: [id number] . 01 Material submitted: . hip - LEFT HIP BONE AND TISSUE. Modifiers: left . 01 Clinical history: . Osteoarthritis. . 02 Diagnosis: Femoral head, left total hip arthroplasty: - Advanced degenerative arthritis with focal subarticular cystic degeneration. (JPM/db; 06/09/2019) [facility] 06/09/2019 1259 Local . 02 Electronically signed: . Khoi Curran MD, Pathologist NPI- [id number] . 01 Gross description: . Received in formalin labeled "Chalo Mahan, left hip bone and tissue" is a femoral head (5.8 x 5.8 x 5.4 cm) with attached femoral neck (4.4 x 3.6 x 1.7 cm). The bone margin is smooth and consistent with the surgical resection margin, inked black. The articular surface displays roughening and eburnation over 90% of the surfaces. Peripheral osteophytes are present. Upon sectioning, the cut surface displays arcos-red focal hemorrhagic areas. A member service representative cross-section is submitted in cassettes A1-A6 following decalcification. ([facility]; 06/04/2019) [facility] 06/04/2019 1635 Local . 02 Pathologist provided ICD-10: M16.12 . 02 CPT . 643544, [id number] Specimen Comment: A courtesy copy of this report has been sent to [phone], [phone] Specimen Comment: [id number] Specimen Comment: Report sent to / DR RIDDLE Performed at: [address], [place], [place] [id number] MD James Montenegro MD Phone: [phone] Performed at: 02 [facility] [address] [place] [id number] MD Khoi Curran MD Phone: [phone]
== END 2019-06-05 15:10 | disposition home or self-care (01) | DRG 470 ==
LOC: OPSVCIP 12:02 → 4 SOUTHEST 19:26
PROVIDERS: ADMIT Orthopaedic Surgery; ATTEND Orthopaedic Surgery
PROC: 0SRB06Z Replacement of Left Hip Joint with Oxidized Zirconium on Polyethylene Synthetic Substitute, Open Approach (ICD-10-PCS; principal; 2019-06-02 13:00)
DX: M16.12 Unilateral primary osteoarthritis, left hip (principal); I10 Essential (primary) hypertension; Z95.0 Presence of cardiac pacemaker; Z96.642 Presence of left artificial hip joint
CPT/HCPCS: 36415; 73502; 85014; 85018; 85610; 85730; 86850; 86900; 86901; 94640; A7015; C1713; J0171; J0696; J1100; J1170; J2001; J2270; J2405; J2704; J2710; J2795; J3010; J3490; J7030; J7120; J7613; J7620; 97116; 97150; 97530; 97535; 97537; G0378

== ENCOUNTER → 2021-04-21 | Outpatient (CLI) | payer OTHER ==
[~2021-04-21] MED LIST changes: +AMLO-187 PO; -AMLO10TA8 PO; -DICL100G18 TP; +DICL100G54 TP; -HYDR50TA6 PO; +HYDR50TA9 PO; +IOHEXOL 300 MG/ML 50 ML VIAL. ONE; +LIDOCAINE 1% Multi-Dose 20 ML VIAL. INJ ONE; +LIDOCAINE 1% Multi-Dose 20 ML VIAL. ONE; +OXYC5CAP PO; -POLY17PO28 PO; +POLY17PO52 PO; -TRANEXAMIC ACID 1,000 MG in IV NORMAL SALINE 50ML 50 ML INJ ONE; +methylPREDNISolone ACETATE 80 MG/ML VIAL. IM ONE; +methylPREDNISolone ACETATE 80 MG/ML VIAL. ONE
--- NOTE | 2021-04-21 14:00 | RAD ---
EXAM: Fluoroscopic guided therapeutic right hip injection. HISTORY: Pain. TECHNIQUE: The risks of the procedure were discussed with the patient and written and verbal consent was obtained. A time out was performed. Fluoroscopic imaging of the right hip was performed and a sit e overlying the joint space was selected for needle entry. There is right hip joint space narrowing w ith degenerative subchondral sclerosis and marginal acetabular and femoral head spurring. The skin ov erlying this region was sterilely prepped, draped and infiltrated with 1% lidocaine. A spinal needle was then advanced into the joint space with fluoroscopic guidance. Appropriate needle tip positioning was confirmed with injection of 3 cc Isovue 300 contrast. Subsequently, the requested solution conta ining 2 cc 1 percent lidocaine and 80 mg Depo-Medrol was injected into the joint space. The needle wa s removed and a sterile bandage was placed at the needle entry site. The patient tolerated the proced ure without difficulty and was discharge in stable condition without immediate complication. 2 fluoro scopic images were obtained for total fluoroscopy time of 0.3 minutes. IMPRESSION: 1. Successful fluoroscopic guided therapeutic right hip injection. 2. Moderate right hip osteoarthritis. Electronically signed by: Priscilla Woodruff MD (04/21/2021 1:57 PM) [id number]
== END | disposition home or self-care (01) ==
LOC: RAD 12:46
PROVIDERS: ATTEND Physician Assistant
DX: M25.551 Pain in right hip (principal); M16.11 Unilateral primary osteoarthritis, right hip; I10 Essential (primary) hypertension; G47.30 Sleep apnea, unspecified; K21.9 Gastro-esophageal reflux disease without esophagitis; F32.9 Major depressive disorder, single episode, unspecified; Z79.899 Other long term (current) drug therapy; Z98.890 Other specified postprocedural states; Z79.82 Long term (current) use of aspirin; Z87.891 Personal history of nicotine dependence; Z88.8 Allergy status to other drugs, medicaments and biological substances
CPT/HCPCS: 20610; 77002